=== PATIENT | female | born 1965 | race Caucasian/White ===

== ENCOUNTER 2021-03-20 21:07 | Emergency (ER) | payer BC ==
--- NOTE | 2021-03-20 22:27 | RAD ---
Exam: Right hand 3 views INDICATION: Ring finger injury TECHNIQUE: Frontal, lateral and oblique views of the right hand Comparisons: None FINDINGS: Bone mineralization is normal. No acute or healed fractures. Soft tissues are unremarkable. Joint spa nadia are well-maintained. IMPRESSION: No acute osseous abnormality. Electronically signed by: Kaden Krueger MD (03/20/2021 10:25 PM) ENIO
[2021-03-20] MEDS ORDERED: CEPH500C PO (22:48)
--- NOTE | 2021-03-20 22:49 | PHYS DOC ---
Adult General Chief Complaint Chief Complaint: LACERATION/AVULSION HPI HPI Patient is a otherwise healthy 55-year-old female who is not up-to-date on her tetanus vaccination who presents with a right distal third finger laceration. 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 States it did not really hurt too bad but want to make sure she did not need stitches and wanted to get updated on tetanus vaccination. Review of Systems Review of Systems Review of systems otherwise unremarkable except noted in HPI Current Medications Current Medications Current Medications Medications (Trade) Dose Ordered Sig/Donna Start Time Stop Time Status Last Admin Dose Admin Clindamycin HCl (Cleocin) 300 mg 1X ONCE 03/20/21 22:15 03/20/21 22:16 UNV Allergies Allergies Allergies Coded Allergies Type Severity Reaction Last Updated Verified No Known Drug Allergies 03/20/21 No Physical Exam Physical Exam Constitutional: Well developed, well nourished, no acute distress, non-toxic appearance. [] Skin: Warm, dry, no erythema, no rash. [] Extremities: Has a 1 cm laceration/abrasion on the distal anterior tip of the third right digit. Bleeding controlled. No obvious deformities. Neurovascular exam intact. Neurologic: Alert and oriented X 3, no focal deficits noted. [] Psychologic: Affect normal, judgement normal, mood normal. [] EKG EKG [] Radiology/Procedures Radiology/Procedures []Exam: Right hand 3 views INDICATION: Ring finger injury TECHNIQUE: Frontal, lateral and oblique views of the right hand Comparisons: None FINDINGS: Bone mineralization is normal. No acute or healed fractures. Soft tissues are unremarkable. Joint spaces are well-maintained. IMPRESSION: No acute osseous abnormality. Electronically signed by: Kaden Krueger MD (03/20/2021 10:25 PM) [facility] Heart Score C/O Chest Pain: N/A Risk Factors: Risk Factors: DM, Current or recent (<one month) smoker, HTN, HLP, family history of CAD, obesity. Risk Scores: Risk Factors: DM, Current or recent (<one month) smoker, HTN, HLP, family history of CAD, obesity. Course & Med Decision Making Course & Med Decision Making Patient is a 55-year-old female who presents with finger laceration Vital signs not concerning. Physical exam noted above. Updated tetanus. Washed wound and bandaged. No need for repair. Keep wound care instructions. Started on clindamycin in the ED given tenderness of forearm and on the hand. Advised to follow-up with primary care physician tomorrow. Gave strict return precautions to the ED. Patient grateful, verbalized understanding and agreed with plan of discharge. Addendum, ignore Keflex prescription [] Dragon Disclaimer Dragon Disclaimer This electronic medical record was generated, in whole or in part, using a voice recognition dictation system. Departure Departure: Impression: Primary Impression: Finger laceration Disposition: HOME / SELF CARE / HOMELESS Condition: GOOD Referrals: PCP,JANNET (PCP) SAVITA BERNAL MD Patient Instructions: Laceration Care, Adult Additional Instructions: Thank you for coming into the emergency department tonight and allowing us to take care of you. Your wound was cleaned and bandaged. Please read all of the attached information for care. You can use Tylenol and ibuprofen as needed at home. Your tetanus status was updated. You were given contact information for a local primary care physician. Please call your primary care physician first thing in the morning to update on your ED visit and set up a follow-up. Please come back to the emergency department immediately with new or concerning symptoms as discussed. Scripts Clindamycin Hcl (CLINDAMYCIN HCL) 300 Mg Capsule 1 CAP PO TID for laceration for 5 Days, #15 CAP Prov: MARCIA KWONG MD 03/20/21 Cephalexin (CEPHALEXIN) 500 Mg Capsule 1 CAP PO BID for laceration for 5 Days, #10 CAP Prov: MARCIA KWONG MD 03/20/21 MARCIA KWONG MD Mar 20, 2021 22:49
[2021-03-20] MEDS ORDERED: CLINDAMYCIN HCL 150 MG CAPSULE PO ONE (23:00)
[2021-03-20] MEDS: CEPHALEXIN 250 MG CAPSULE PO ONE ×2 (23:28→23:30)
[2021-03-20] MEDS ORDERED: DIPH,PERTUSS(ACELL),TET VAC/PF 0.5 ML SYRINGE. VAX IM ONE (23:30)
[2021-03-20] MEDS ORDERED: CLIN300C9 PO (23:32)
== END 2021-03-20 22:45 | disposition home or self-care (01) ==
LOC: ER 21:07
DX: S61.212A Laceration without foreign body of right middle finger without damage to nail, initial encounter (principal); W22.8XXA Striking against or struck by other objects, initial encounter; Y93.89 Activity, other specified; Y92.89 Other specified places as the place of occurrence of the external cause; Y99.8 Other external cause status
CPT/HCPCS: 73130; 90471; 90715; 99283